=== PATIENT | female | born 1995 | race Two or more races ===

== ENCOUNTER 2022-10-08 15:20 | Emergency (ER) | payer OTHER ==
[~2022-10-08] VITALS: Ht 157.5 cm; Wt 73.5 kg
[2022-10-08] MEDS ORDERED: CIPRO500 MG PO (19:32)
== END 2022-10-08 19:43 | disposition home or self-care (01) ==
LOC: ER 15:20
DX: S01.82XA Laceration with foreign body of other part of head, initial encounter (principal); W19.XXXA Unspecified fall, initial encounter; Y93.9 Activity, unspecified; Y92.9 Unspecified place or not applicable; Z88.0 Allergy status to penicillin